=== PATIENT | female | born 1965 | race Caucasian/White ===

== ENCOUNTER 2016-06-15 08:59 | Day surgery (SDC) | payer OTHER ==
[~2016-06-15] VITALS: Ht 152.4 cm; Wt 98.0 kg
[~2016-06-15 08:59] MED LIST: ACETA-GESIC 321 EACH PO; ADVAIR 100/501 DISK IH; ADVAIR 250/501 DISK IH; ADVAIR 500/501 DISK IH; ALAVERT10 MG PO; AMBIEN10 M1 PO; AMBIEN10 MG PO; ANEXSIA 7.5-651 EACH PO; APRESOLINE50 MG PO; ASPIR 8181 M1 PO; ASPIR-TRIN325 M1 PO; ASPIRIN325 MG PO; ASPIRIN81 M1 PO; ATIVAN1 MG PO; ATIVAN2 MG PO; ATORVASTATIN CA10 MG PO; AZITHROMYCIN250 MG1 PO; Apresoline PO; Ativan PO; BENADRYL50 MG PO; CALAN SR,COVER180 MG PO; CALTRATE 600600 MG PO; CARAFATE100 MG/ML PO; CELEBREX100 MG PO; CELEBREX200 MG PO; CENTRUM SILVER1 EAC3 PO; CLARITIN10 M3 PO; CLARITIN10 MG PO; CLEOCIN300 MG PO; COMPAZINE10 MG PO; COZAAR100 MG PO; CYMBALTA60 MG PO; DAILY VITAMIN1 EAC8 PO; DAILY VITE1 EAC1 PO; DESYREL 150 MG150 MG PO; DESYREL100 MG PO; DICYCLOMINE HCL10 MG PO; DIGESTIVE AID PO; DOXYCYCLINE HY100 MG PO; ECOTRIN325 MG PO; ENDOCET 5-3251 EACH PO; FIORICET WI1 CAPSULE PO; FISH OIL SOFTG1 EACH PO; FLAGYL250 MG PO; FLEXERIL10 MG PO; FLEXERIL5 MG PO; FLONASE16 G1 BOTH NARES; FLONASE16 GM NS; GABAPENTIN100 MG PO; GABAPENTIN300 MG PO; GEODON80 MG PO; GLUCOPHAGE500 MG PO; HUMULIN R500 UNITS/ SC; HYDRALAZINE HCL50 MG PO; HYDROCODON-ACE1 EAC7 PO; IBUPROFEN600 MG PO; INSULIN PUMP SCCONT; LAMICTAL100 MG PO; LAMICTAL150 MG PO; LAMICTAL200 MG PO; LAMICTAL25 MG PO; LEVEMIR FL100 UNIT/1 SC; LEVEMIR100 UNIT/2 PO; LEXAPRO10 MG PO; LIPITOR10 MG PO; LITE COAT ASPI325 M1 PO; LOPRESSOR100 M1 PO; LORATADINE10 M2 PO; LORAZEPAM1 MG PO; LORAZEPAM2 MG PO; LORCET 5-325 M1 EACH PO; LORTAB 7.5-5001 EACH PO; LOSARTAN POTAS100 MG PO; MAGNESIUM100 MG PO; MECLIZINE HCL25 M2 PO; MEDROL DOSEPAK4 MG PO; MELOXICAM15 MG PO; METFORMIN HCL500 M1 PO; METFORMIN HCL500 MG PO; MIGRANAL1 ML BOTH NARES; MISOPROSTOL200 MCG PO; MOBIC15 MG PO; MOBIC7.5 MG PO; MOTRIN IB200 MG PO; MOTRIN600 MG PO; MOTRIN800 MG PO; MUPIROCIN22 GM TP; NAPROSYN500 MG PO; NEURONTIN300 MG PO; NEXIUM40 MG PO; NIASPAN500 MG PO; NORCO 5/3251 TABLET PO; NORVASC10 MG PO; NOVOLIN,HU100 UNITS/ SC; NOVOLOG PE100 UNITS/ SC; ONE-A-DAY ESSE1 EAC1 PO; PENLAC 8%6.6 ML TP; PERCOCET 5/31 TABLET PO; PRINIVIL20 MG PO; PROAIR HFA8.5 GM IH; PROMETHAZINE HC25 M1 PO; Proventil,Ventolin H IH; REGLAN10 MG PO; RENATABS TABLE1 EACH PO; RISPERDAL3 MG PO; RISPERIDONE3 MG PO; RITALIN10 MG PO; SANCTURA20 MG PO; SKELAXIN800 MG PO; ST. JOSEPH ASPI81 MG PO; TOVIAZ8 MG PO; TRAMADOL HCL50 MG PO; TRAZODONE HCL100 MG PO; TRAZODONE HCL150 MG PO; TRAZODONE HCL50 MG PO; ULTRAM50 MG PO; UNKNOWN MEDICATIONS; VERAPAMIL ER240 MG PO; VERAPAMIL HCL180 MG PO; VERAPAMIL HCL240 MG PO; VERAPAMIL HCL360 MG PO; VERELAN 180 MG180 MG PO; VIBRAMYCIN100 MG PO; VICODIN 5-3001 EACH PO; VICODIN,LORT1 TABLET PO; WOMEN S BONE H PO; XANAX1 MG PO; ZESTRIL,PRINIVI10 MG PO; ZITHROMAX250 MG PO; ZOFRAN ODT4 MG PO; ZOFRAN4 MG PO; ZOLPIDEM TARTRA10 MG PO; [UNRECOGNIZED DRUG - OTHER]
[2016-06-15 09:31] LABS: POINT-OF-CARE METER ID UU14174212
== END 2016-06-15 10:41 | disposition home or self-care (01) ==
LOC: PAIN 08:59 → SDC 09:15 → PAIN 09:15
PROVIDERS: Anesthesiology Pain Medicine
PROC: 3E0T3BZ Introduction of Anesthetic Agent into Peripheral Nerves and Plexi, Percutaneous Approach (ICD-10-PCS; principal; 2016-06-15)
DX: M47.892 Other spondylosis, cervical region (principal); F41.1 Generalized anxiety disorder; J45.909 Unspecified asthma, uncomplicated; E11.40 Type 2 diabetes mellitus with diabetic neuropathy, unspecified; M47.816 Spondylosis without myelopathy or radiculopathy, lumbar region; E78.5 Hyperlipidemia, unspecified; F31.81 Bipolar II disorder; M79.1 Myalgia; Z79.4 Long term (current) use of insulin; Z96.41 Presence of insulin pump (external) (internal); M54.40 Lumbago with sciatica, unspecified side; K76.0 Fatty (change of) liver, not elsewhere classified
CPT/HCPCS: 82948; J1030; J2250; J3010; S0020

== ENCOUNTER 2016-08-22 17:15 | Observation (INO) | payer OTHER ==
[~2016-08-22] VITALS: Ht 152.4 cm; Wt 101.9 kg
[2016-08-22 17:45] LABS: POINT-OF-CARE METER ID UU13113778
[2016-08-22 19:29] LABS: HEMATOCRIT 35.5 % (36.0-46.0); MCHC 31.8 G/DL (30.0-36.0); MCV 88.1 FL (83-99); MEAN PLAT.VOLUME 9.8 uM^3 (9.5-12.4); PLATELET COUNT 269 K/uL (156-360); RBC DIS.WIDTH-CV 12.8 % (11.8-14.6); RBC DIS.WIDTH-SD 41.5 % (39-53); RED BLOOD COUNT 4.03 M/uL (3.80-5.20); WHITE BLOOD COUNT 8.9 K/uL (4.1-10.2)
[2016-08-22 19:37] LABS: CHLORIDE 105 mEq/L (99-109); POTASSIUM 3.8 mEq/L (3.7-5.4); SODIUM 142 mEq/L (136-147)
[2016-08-22 19:39] LABS: GLUCOSE 77 mg/dL (70-99)
[2016-08-22 19:40] LABS: ANION GAP 8 MEQ/L (2-14)
[2016-08-22 19:44] LABS: GFR ESTIMATE (CALCULATED) > 59 mL/min/; UREA NITROGEN (BUN) 28 mg/dL (9-23)
[2016-08-22 19:48] LABS: TROP-I INTERPRETATION NEGATIVE; TROPONIN-I 0.03 ng/mL (0.0-0.30)
[2016-08-22 19:56] LABS: D-DIMER ELISA 0.62 mg/L FEU (< 0.57)
[2016-08-22 20:47] LABS: QUANTITATIVE HCG < 4.0 MIU/ML
[2016-08-22] MEDS ORDERED: ADVAIR 250/501 DISK IH (22:02)
[2016-08-22] MEDS ORDERED: ARTHROTEC 751 TABLET PO (22:05)
[2016-08-22] MEDS ORDERED: ABILIFY10 MG PO (22:07)
[2016-08-22] MEDS ORDERED: NYSTOP60 GM TP (22:08)
[2016-08-22] MEDS ORDERED: NYSTATIN15 GM TP (22:09)
[2016-08-22] MEDS ORDERED: PERCOCET 5/31 TABLET PO (22:11)
[2016-08-22] MEDS ORDERED: OTEZLA30 MG PO (22:14)
[2016-08-23 00:13] LABS: POINT-OF-CARE METER ID UU14100415
[2016-08-23 02:02] LABS: TROP-I INTERPRETATION NEGATIVE; TROPONIN-I 0.02 ng/mL (0.0-0.30)
[2016-08-23 02:22] VITALS: BP 126/57
[2016-08-23 02:37] LABS: HDL CHOLESTEROL 38 MG/DL (Desirable>=50); LDL CHOLESTEROL 24 mg/dL (Desirable<100); NON-HDL CHOLESTEROL 50 mg/dL (Desirable<160); TOTAL CHOLESTEROL 88 mg/dL (Desirable<200); TRIGLYCERIDES 128 MG/DL (Normal: <150)
[2016-08-23 03:37] LABS: POINT-OF-CARE METER ID UU13113700
[2016-08-23 05:00] LABS: METH RESISTANT S AUREUS PCR NEGATIVE (NEGATIVE)
[2016-08-23 05:07] LABS: PROBE CHECK PASS; SPECIMEN PROCESSING CONTROL PASS
[2016-08-23 08:42] LABS: POINT-OF-CARE METER ID UU13113831
[2016-08-23 08:53] VITALS: BP 121/73
[2016-08-23 09:21] LABS: TROP-I INTERPRETATION NEGATIVE; TROPONIN-I 0.01 ng/mL (0.0-0.30)
[2016-08-23 11:12] VITALS: BP 124/63
[2016-08-23 12:12] LABS: POINT-OF-CARE METER ID UU13113700
== END 2016-08-23 13:10 | disposition home or self-care (01) ==
LOC: EME 17:15 → EDOF 08-23 00:24 → 5WEST 08-23 01:50
PROVIDERS: Emergency Medicine; Family Medicine; Hospitalist; Physician Assistant Medical
DX: R07.89 Other chest pain (principal); D64.9 Anemia, unspecified; I10 Essential (primary) hypertension; F31.9 Bipolar disorder, unspecified; E78.5 Hyperlipidemia, unspecified; E11.9 Type 2 diabetes mellitus without complications; Z79.4 Long term (current) use of insulin; Z96.41 Presence of insulin pump (external) (internal); E66.01 Morbid (severe) obesity due to excess calories; Z68.41 Body mass index [BMI] 40.0-44.9, adult; F43.10 Post-traumatic stress disorder, unspecified; G43.909 Migraine, unspecified, not intractable, without status migrainosus; L40.9 Psoriasis, unspecified; G89.29 Other chronic pain
CPT/HCPCS: 71020; 78582; 80048; 80061; 82948; 84484; 84702; 85027; 85379; 87641; 93005; 94640; 94640 76; 99202; 99281; 99285; A9540; A9567; G0378; J1650; J3010

== ENCOUNTER 2016-08-31 09:45 | Day surgery (SDC) | payer OTHER ==
[~2016-08-31] VITALS: Ht 152.4 cm; Wt 98.2 kg
[~2016-08-31 09:45] MED LIST changes: +ABILIFY10 MG PO; +ARTHROTEC 751 TABLET PO; +NYSTATIN15 GM TP; +NYSTOP60 GM TP; +OTEZLA30 MG PO
[2016-08-31 10:23] LABS: POINT-OF-CARE METER ID UU14174212
== END 2016-08-31 12:33 | disposition home or self-care (01) ==
LOC: PAIN 09:45 → SDC 10:45 → PAIN 12:33
PROVIDERS: Anesthesiology Pain Medicine
DX: M47.812 Spondylosis without myelopathy or radiculopathy, cervical region (principal); F41.9 Anxiety disorder, unspecified; M47.816 Spondylosis without myelopathy or radiculopathy, lumbar region; M19.90 Unspecified osteoarthritis, unspecified site; E10.40 Type 1 diabetes mellitus with diabetic neuropathy, unspecified; Z96.41 Presence of insulin pump (external) (internal); I10 Essential (primary) hypertension; K58.9 Irritable bowel syndrome, unspecified; F32.9 Major depressive disorder, single episode, unspecified; J45.909 Unspecified asthma, uncomplicated; L40.50 Arthropathic psoriasis, unspecified; Z91.5 Personal history of self-harm; Z91.09 Other allergy status, other than to drugs and biological substances; Z91.030 Bee allergy status; Z88.0 Allergy status to penicillin; Z88.2 Allergy status to sulfonamides; Z88.1 Allergy status to other antibiotic agents; Z88.8 Allergy status to other drugs, medicaments and biological substances
CPT/HCPCS: 82948; J1030; J1885; J2250; J3010; S0020

== ENCOUNTER 2016-09-08 16:58 | Emergency (ER) | payer OTHER ==
[~2016-09-08] VITALS: Ht 152.4 cm; Wt 102.0 kg
[2016-09-08 18:08] LABS: BASOPHIL COUNT 0.1 K/uL (0-0.1); EOSINOPHIL (%) 2.6 % (0-5); EOSINOPHIL COUNT 0.3 K/uL (0-0.3); IMMATURE GRANULOCYTE (%) 0.4 % (0.0-0.7); INSTRUMENT ABS NEUTROPHIL CT 6.4 K/uL; LYMPHOCYTE COUNT 2.4 K/uL (1.0-2.8); MCH 28.4 PG (29.0-34.0); MCHC 32.7 G/DL (30.0-36.0); MCV 86.9 FL (83-99); MEAN PLAT.VOLUME 9.8 uM^3 (9.5-12.4); MONOCYTE (%) 7.6 % (3-12); MONOCYTE COUNT 0.8 K/uL (0-0.8); NEUTROPHIL (%) 64.7 % (45-76); NEUTROPHIL COUNT 6.4 K/uL (1.8-6.4); PLATELET COUNT 276 K/uL (156-360); RBC DIS.WIDTH-CV 12.8 % (11.8-14.6); RBC DIS.WIDTH-SD 40.2 % (39-53); RED BLOOD COUNT 4.26 M/uL (3.80-5.20)
[2016-09-08 18:20] LABS: CHLORIDE 104 mEq/L (99-109); POTASSIUM 3.9 mEq/L (3.7-5.4); SODIUM 139 mEq/L (136-147)
[2016-09-08 18:21] LABS: MAGNESIUM 1.9 mg/dL (1.3-2.7)
[2016-09-08 18:22] LABS: GLUCOSE 142 mg/dL (70-99)
[2016-09-08 18:23] LABS: ANION GAP 11 MEQ/L (2-14); PROTHROMBIN TIME 9.8 (9.2-11.2); PTT 24.3 (25-32)
[2016-09-08 18:26] LABS: GFR ESTIMATE (CALCULATED) > 59 mL/min/
[2016-09-08 18:27] LABS: UREA NITROGEN (BUN) 23 mg/dL (9-23)
[2016-09-08 18:28] LABS: TROP-I INTERPRETATION NEGATIVE; TROPONIN-I < 0.01 ng/mL (0.0-0.30)
[2016-09-08 20:42] LABS: TROP-I INTERPRETATION NEGATIVE; TROPONIN-I < 0.01 ng/mL (0.0-0.30)
[2016-09-08 21:08] VITALS: BP 161/62
== END 2016-09-08 21:16 | disposition home or self-care (01) ==
LOC: EME → EDBD 16:58 → EME 21:16
PROVIDERS: Emergency Medicine
DX: R07.89 Other chest pain (principal); I10 Essential (primary) hypertension; E78.5 Hyperlipidemia, unspecified; J45.909 Unspecified asthma, uncomplicated; E11.9 Type 2 diabetes mellitus without complications; F31.9 Bipolar disorder, unspecified; K21.9 Gastro-esophageal reflux disease without esophagitis; K58.9 Irritable bowel syndrome, unspecified; F43.10 Post-traumatic stress disorder, unspecified; G89.29 Other chronic pain; M54.9 Dorsalgia, unspecified; F41.9 Anxiety disorder, unspecified; Z96.41 Presence of insulin pump (external) (internal); Z79.4 Long term (current) use of insulin
CPT/HCPCS: 71010; 80048; 83735; 84484; 85025; 85610; 85730; 93005; 99281; 99285

== ENCOUNTER 2016-10-12 04:32 | Emergency (ER) | payer OTHER ==
[~2016-10-12] VITALS: Ht 152.4 cm; Wt 99.3 kg
[2016-10-12 04:38] VITALS: BP 141/63
== END 2016-10-12 07:01 | disposition home or self-care (01) ==
LOC: EME 04:32
DX: J02.8 Acute pharyngitis due to other specified organisms (principal)
CPT/HCPCS: 87651 90; 99281; 99284

== ENCOUNTER 2016-11-09 08:16 | Day surgery (SDC) | payer OTHER ==
[~2016-11-09] VITALS: Ht 152.4 cm; Wt 102.0 kg
[~2016-11-09 08:16] MED LIST changes: +HUMIRA40 MG/0.1 SC; +KETOCONAZOLE60 GM TP
[2016-11-09 11:08] LABS: POINT-OF-CARE METER ID UU13113696; POINT-OF-CARE USER ID HMLCJM07
[2016-11-09 13:06] LABS: POINT-OF-CARE METER ID UU13113819; POINT-OF-CARE USER ID ADMKMM76
== END 2016-11-09 17:25 | disposition home or self-care (01) ==
LOC: CATH 08:16
PROVIDERS: Internal Medicine Cardiovascular Disease
DX: R07.9 Chest pain, unspecified (principal); R06.02 Shortness of breath; I10 Essential (primary) hypertension; E78.5 Hyperlipidemia, unspecified; E11.9 Type 2 diabetes mellitus without complications; L40.50 Arthropathic psoriasis, unspecified; Z91.041 Radiographic dye allergy status
CPT/HCPCS: 82948; C1769; C1887; J1644; J2250; J2405; J3010

== ENCOUNTER 2017-01-23 08:48 | Day surgery (SDC) | payer OTHER ==
[~2017-01-23] VITALS: Ht 152.4 cm; Wt 99.8 kg
[2017-01-23] MEDS ORDERED: CALMOSEPTINE O3.5 GM TP (09:35)
[2017-01-23 10:33] LABS: POINT-OF-CARE METER ID UU13113819
[2017-01-23 14:51] LABS: POINT-OF-CARE METER ID UU14174216
== END 2017-01-23 11:15 | disposition home or self-care (01) ==
LOC: PAIN 08:48 → SDC 09:30 → PAIN 11:15
PROVIDERS: Anesthesiology Pain Medicine
DX: M47.22 Other spondylosis with radiculopathy, cervical region (principal); M54.2 Cervicalgia; Z88.2 Allergy status to sulfonamides; E11.40 Type 2 diabetes mellitus with diabetic neuropathy, unspecified; M47.816 Spondylosis without myelopathy or radiculopathy, lumbar region; M54.40 Lumbago with sciatica, unspecified side; I10 Essential (primary) hypertension; E66.01 Morbid (severe) obesity due to excess calories; Z68.41 Body mass index [BMI] 40.0-44.9, adult; J45.20 Mild intermittent asthma, uncomplicated; M17.11 Unilateral primary osteoarthritis, right knee; K21.9 Gastro-esophageal reflux disease without esophagitis; Z79.4 Long term (current) use of insulin; E78.5 Hyperlipidemia, unspecified; F41.9 Anxiety disorder, unspecified; Z88.0 Allergy status to penicillin; Z79.82 Long term (current) use of aspirin; G89.29 Other chronic pain
CPT/HCPCS: 82948; J1030; J2250; J3010; S0020

== ENCOUNTER 2017-01-27 22:52 | Emergency (ER) | payer OTHER ==
[~2017-01-27] VITALS: Ht 152.4 cm; Wt 98.0 kg
[~2017-01-27 22:52] MED LIST changes: +CALMOSEPTINE O3.5 GM TP
[2017-01-28 02:27] LABS: HEMATOCRIT 37.1 % (36.0-46.0); MCH 28.7 PG (29.0-34.0); MCHC 31.8 G/DL (30.0-36.0); MCV 90.3 FL (83-99); MEAN PLAT.VOLUME 10.2 uM^3 (9.5-12.4); PLATELET COUNT 261 K/uL (156-360); RBC DIS.WIDTH-CV 13.3 % (11.8-14.6); RED BLOOD COUNT 4.11 M/uL (3.80-5.20); WHITE BLOOD COUNT 10.7 K/uL (4.1-10.2)
[2017-01-28 02:39] LABS: CHLORIDE 105 mEq/L (99-109); POTASSIUM 3.8 mEq/L (3.7-5.4)
[2017-01-28 02:41] LABS: GLUCOSE 142 mg/dL (70-99)
[2017-01-28 02:42] LABS: ANION GAP 8 MEQ/L (2-14)
[2017-01-28 02:43] LABS: TOTAL BILIRUBIN 0.2 mg/dL (0.0-1.0)
[2017-01-28 02:45] LABS: ALKALINE PHOSPHATASE 104 IU/L (3-129); GFR ESTIMATE (CALCULATED) > 59 mL/min/
[2017-01-28 02:48] LABS: SODIUM 143 mEq/L (136-147); UREA NITROGEN (BUN) 21 mg/dL (9-23)
[2017-01-28 08:40] VITALS: BP 134/66
== END 2017-01-28 08:43 | disposition home or self-care (01) ==
LOC: EME 22:52
PROVIDERS: Physician Assistant
DX: L02.415 Cutaneous abscess of right lower limb (principal); L02.214 Cutaneous abscess of groin; Z16.30 Resistance to unspecified antimicrobial drugs; E11.9 Type 2 diabetes mellitus without complications; Z79.4 Long term (current) use of insulin; E78.5 Hyperlipidemia, unspecified; Z96.41 Presence of insulin pump (external) (internal); Z87.442 Personal history of urinary calculi; Z88.1 Allergy status to other antibiotic agents; Z88.2 Allergy status to sulfonamides; Z88.6 Allergy status to analgesic agent
CPT/HCPCS: 80053; 83605; 85027; 99281; 99284; J3370

== ENCOUNTER 2017-03-20 12:17 | Day surgery (SDC) | payer OTHER ==
[~2017-03-20] VITALS: Ht 152.4 cm; Wt 99.8 kg
[2017-03-20 13:16] LABS: POINT-OF-CARE METER ID UU14174212
== END 2017-03-20 15:02 | disposition home or self-care (01) ==
LOC: PAIN 12:17
PROVIDERS: Anesthesiology Pain Medicine
DX: M47.22 Other spondylosis with radiculopathy, cervical region (principal); M54.2 Cervicalgia; M47.816 Spondylosis without myelopathy or radiculopathy, lumbar region; I10 Essential (primary) hypertension; J45.909 Unspecified asthma, uncomplicated; K21.9 Gastro-esophageal reflux disease without esophagitis; E11.40 Type 2 diabetes mellitus with diabetic neuropathy, unspecified; E11.65 Type 2 diabetes mellitus with hyperglycemia; Z86.14 Personal history of Methicillin resistant Staphylococcus aureus infection; E78.5 Hyperlipidemia, unspecified; Z96.41 Presence of insulin pump (external) (internal); Z79.4 Long term (current) use of insulin; E66.01 Morbid (severe) obesity due to excess calories; Z68.41 Body mass index [BMI] 40.0-44.9, adult; L40.50 Arthropathic psoriasis, unspecified; R01.1 Cardiac murmur, unspecified; Z88.0 Allergy status to penicillin; Z88.2 Allergy status to sulfonamides; Z79.82 Long term (current) use of aspirin; Z79.891 Long term (current) use of opiate analgesic
CPT/HCPCS: 82948; J1030; J2250; J3010; S0020

== ENCOUNTER 2017-08-29 21:35 | Emergency (ER) | payer OTHER ==
[~2017-08-29] VITALS: Ht 152.4 cm; Wt 96.5 kg
[2017-08-29 22:16] LABS: HEMATOCRIT 36.8 % (36.0-46.0); HEMOGLOBIN 13.1 G/DL (11.9-15.5); MCH 30.8 PG (29.0-34.0); MCHC 35.6 G/DL (30.0-36.0); MCV 86.6 FL (83-99); PLATELET COUNT 179 K/uL (156-360); RBC DIS.WIDTH-CV 12.2 % (11.8-14.6); RBC DIS.WIDTH-SD 38.6 % (39-53); RED BLOOD COUNT 4.25 M/uL (3.80-5.20); WHITE BLOOD COUNT 9.6 K/uL (4.1-10.2)
[2017-08-29 22:29] LABS: ALBUMIN 4.1 g/dL (3.2-4.8); CHLORIDE 97 mEq/L (99-109); POTASSIUM 4.2 mEq/L (3.7-5.4); SODIUM 134 mEq/L (136-147)
[2017-08-29 22:31] LABS: TOTAL PROTEIN 7.1 g/dL (6.4-8.3)
[2017-08-29 22:33] LABS: TOTAL BILIRUBIN 0.4 mg/dL (0.0-1.0)
[2017-08-29 22:35] LABS: ALKALINE PHOSPHATASE 128 IU/L (3-129); CREATININE 0.8 mg/dL (0.6-1.3); GFR ESTIMATE (CALCULATED) > 59 mL/min/
[2017-08-29 22:36] LABS: UREA NITROGEN (BUN) 10 mg/dL (9-23)
[2017-08-29 22:37] LABS: AST (GOT) 31 IU/L (2-34)
[2017-08-29 22:38] LABS: ALT (GPT) 47 IU/L (3-49)
[2017-08-29 22:43] LABS: GLUCOSE 475 mg/dL (70-99)
[2017-08-30 01:00] LABS: APPEARANCE CLEAR ((CLEAR)); BILIRUBIN NEGATIVE; BLOOD NEGATIVE; COLOR YELLOW ((YELLOW)); GLUCOSE (STRIP) >=500; KETONES NEGATIVE; LEUKOCYTES NEGATIVE; NITRITE NEGATIVE; PROTEIN (STRIP) NEGATIVE; SPECIFIC GRAVITY 1.031 (1.000-1.030); UCUL ADDED? NO; UROBILINOGEN 0.2 MG/DL (0.2-1.0)
[2017-08-30 02:30] VITALS: BP 132/80
== END 2017-08-30 02:44 | disposition home or self-care (01) ==
LOC: EME 21:35
PROVIDERS: Physician Assistant
DX: E11.65 Type 2 diabetes mellitus with hyperglycemia (principal); Z91.19 Patient's noncompliance with other medical treatment and regimen; E86.0 Dehydration; E78.5 Hyperlipidemia, unspecified; K58.9 Irritable bowel syndrome, unspecified; F41.9 Anxiety disorder, unspecified; G89.29 Other chronic pain; M54.9 Dorsalgia, unspecified; Z79.4 Long term (current) use of insulin; Z96.41 Presence of insulin pump (external) (internal); Z87.442 Personal history of urinary calculi; Z90.49 Acquired absence of other specified parts of digestive tract; Z90.710 Acquired absence of both cervix and uterus; Z88.5 Allergy status to narcotic agent; Z88.2 Allergy status to sulfonamides; Z88.1 Allergy status to other antibiotic agents; Z88.0 Allergy status to penicillin; Z91.041 Radiographic dye allergy status
CPT/HCPCS: 80053; 81003; 82948; 85027; J7030

== ENCOUNTER 2017-08-30 15:24 | Emergency (ER) | payer OTHER ==
[~2017-08-30] VITALS: Ht 152.4 cm; Wt 96.8 kg
[2017-08-30 16:52] LABS: BASOPHIL (%) 1.2 % (0-1); BASOPHIL COUNT 0.1 K/uL (0-0.1); EOSINOPHIL (%) 2.1 % (0-5); EOSINOPHIL COUNT 0.2 K/uL (0-0.3); HEMATOCRIT 39.7 % (36.0-46.0); HEMOGLOBIN 13.8 G/DL (11.9-15.5); IMMATURE GRANULOCYTE (%) 0.2 % (0.0-0.7); LYMPHOCYTE (%) 29.4 % (15-42); MCH 30.1 PG (29.0-34.0); MCHC 34.8 G/DL (30.0-36.0); MCV 86.5 FL (83-99); MONOCYTE (%) 8.1 % (3-12); MONOCYTE COUNT 0.8 K/uL (0-0.8); PLATELET COUNT 195 K/uL (156-360); RBC DIS.WIDTH-CV 12.3 % (11.8-14.6); RBC DIS.WIDTH-SD 38.8 % (39-53); RED BLOOD COUNT 4.59 M/uL (3.80-5.20); WHITE BLOOD COUNT 10.1 K/uL (4.1-10.2)
[2017-08-30 16:53] LABS: CARBON DIOXIDE (BICARBONATE) 32.5 MEQ/L (20-31)
[2017-08-30 17:00] LABS: ALBUMIN 4.3 g/dL (3.2-4.8)
[2017-08-30 17:01] LABS: CHLORIDE 100 mEq/L (99-109); POTASSIUM 3.6 mEq/L (3.7-5.4); SODIUM 139 mEq/L (136-147)
[2017-08-30 17:03] LABS: TOTAL PROTEIN 7.6 g/dL (6.4-8.3)
[2017-08-30 17:04] LABS: GLUCOSE 104 mg/dL (70-99)
[2017-08-30 17:06] LABS: ALKALINE PHOSPHATASE 117 IU/L (3-129)
[2017-08-30 17:07] LABS: CREATININE 0.7 mg/dL (0.6-1.3); GFR ESTIMATE (CALCULATED) > 59 mL/min/; TOTAL BILIRUBIN 0.5 mg/dL (0.0-1.0)
[2017-08-30 17:08] LABS: UREA NITROGEN (BUN) 11 mg/dL (9-23)
[2017-08-30 17:10] LABS: ALT (GPT) 55 IU/L (3-49); LIPASE 25 U/L (1.0-51.0)
[2017-08-30 17:14] LABS: AST (GOT) 49 IU/L (2-34)
[2017-08-30 18:27] VITALS: BP 144/62
== END 2017-08-30 18:30 | disposition home or self-care (01) ==
LOC: EME 15:24
PROVIDERS: Emergency Medicine
DX: E11.65 Type 2 diabetes mellitus with hyperglycemia (principal); E78.5 Hyperlipidemia, unspecified; K58.9 Irritable bowel syndrome, unspecified; M54.9 Dorsalgia, unspecified; G89.29 Other chronic pain; F43.10 Post-traumatic stress disorder, unspecified; F41.9 Anxiety disorder, unspecified; Z79.51 Long term (current) use of inhaled steroids; Z79.891 Long term (current) use of opiate analgesic; Z79.82 Long term (current) use of aspirin; Z96.41 Presence of insulin pump (external) (internal); Z87.442 Personal history of urinary calculi; Z90.49 Acquired absence of other specified parts of digestive tract; Z90.711 Acquired absence of uterus with remaining cervical stump; Z91.048 Other nonmedicinal substance allergy status; Z88.1 Allergy status to other antibiotic agents; Z88.5 Allergy status to narcotic agent; Z88.2 Allergy status to sulfonamides; Z88.0 Allergy status to penicillin; Z91.041 Radiographic dye allergy status; Z91.010 Allergy to peanuts; Z88.8 Allergy status to other drugs, medicaments and biological substances
CPT/HCPCS: 80053; 81003; 82010; 82803; 82948; 83605; 83690; 85025; 99281; 99284; J7120

== ENCOUNTER 2017-09-08 23:10 | Emergency (ER) | payer OTHER ==
[~2017-09-08] VITALS: Ht 152.4 cm; Wt 98.6 kg
[~2017-09-08 23:10] MED LIST changes: +ENBREL50 MG/1 ML SC; -HUMIRA40 MG/0.1 SC; +OMEPRAZOLE40 M1 PO
[2017-09-08 23:39] LABS: HEMATOCRIT 38.9 % (36.0-46.0); HEMOGLOBIN 13.4 G/DL (11.9-15.5); MCH 30.1 PG (29.0-34.0); MCHC 34.4 G/DL (30.0-36.0); MCV 87.4 FL (83-99); PLATELET COUNT 212 K/uL (156-360); RBC DIS.WIDTH-CV 12.3 % (11.8-14.6); RBC DIS.WIDTH-SD 39.5 % (39-53); RED BLOOD COUNT 4.45 M/uL (3.80-5.20); WHITE BLOOD COUNT 10.2 K/uL (4.1-10.2)
[2017-09-08 23:48] LABS: CHLORIDE 103 mEq/L (99-109); POTASSIUM 3.8 mEq/L (3.7-5.4); SODIUM 139 mEq/L (136-147)
[2017-09-08 23:51] LABS: GLUCOSE 164 mg/dL (70-99); TOTAL PROTEIN 7.1 g/dL (6.4-8.3)
[2017-09-08 23:53] LABS: TOTAL BILIRUBIN 0.4 mg/dL (0.0-1.0)
[2017-09-08 23:54] LABS: ALKALINE PHOSPHATASE 119 IU/L (3-129); CREATININE 0.7 mg/dL (0.6-1.3); GFR ESTIMATE (CALCULATED) > 59 mL/min/
[2017-09-08 23:55] LABS: UREA NITROGEN (BUN) 11 mg/dL (9-23)
[2017-09-08 23:56] LABS: AST (GOT) 39 IU/L (2-34)
[2017-09-08 23:57] LABS: ALT (GPT) 50 IU/L (3-49)
[2017-09-09 00:05] LABS: QUANTITATIVE HCG < 4.0 MIU/ML
[2017-09-09 00:29] LABS: APPEARANCE SL.HAZY ((CLEAR)); BILIRUBIN NEGATIVE; BLOOD NEGATIVE; COLOR YELLOW ((YELLOW)); GLUCOSE (STRIP) NEGATIVE; KETONES NEGATIVE; LEUKOCYTES SMALL; NITRITE NEGATIVE; PROTEIN (STRIP) NEGATIVE; SPECIFIC GRAVITY 1.012 (1.000-1.030); UROBILINOGEN 0.2 MG/DL (0.2-1.0)
[2017-09-09 00:38] LABS: BACTERIA NONE SEEN /HPF; EPITHELIAL CELLS 1+ /HPF; MUCUS TRACE /LPF; RED BLOOD CELLS 0-5 /HPF (0-5); UCUL ADDED? YES; WHITE BLOOD CELLS 15-20 /HPF (0-5)
[2017-09-09 01:02] LABS: LIPASE 34 U/L (1.0-51.0)
[2017-09-09 02:52] LABS: TROP-I INTERPRETATION NEGATIVE; TROPONIN-I < 0.01 ng/mL (0.0-0.30)
[2017-09-09 03:59] LABS: TROP-I INTERPRETATION NEGATIVE; TROPONIN-I 0.01 ng/mL (0.0-0.30)
[2017-09-09] MEDS ORDERED: ZOFRAN4 MG PO (04:34)
[2017-09-09 05:04] VITALS: BP 143/78
== END 2017-09-09 05:04 | disposition home or self-care (01) ==
LOC: EME 23:10
PROVIDERS: Emergency Medicine
DX: K59.00 Constipation, unspecified (principal); R10.31 Right lower quadrant pain; E78.5 Hyperlipidemia, unspecified; Z87.442 Personal history of urinary calculi; G43.909 Migraine, unspecified, not intractable, without status migrainosus; F41.9 Anxiety disorder, unspecified; G89.29 Other chronic pain; M54.9 Dorsalgia, unspecified; Z79.891 Long term (current) use of opiate analgesic; E11.9 Type 2 diabetes mellitus without complications; Z96.41 Presence of insulin pump (external) (internal); Z79.4 Long term (current) use of insulin; Z79.82 Long term (current) use of aspirin; Z88.1 Allergy status to other antibiotic agents; Z88.5 Allergy status to narcotic agent; Z88.2 Allergy status to sulfonamides; Z91.041 Radiographic dye allergy status; F43.10 Post-traumatic stress disorder, unspecified; K58.9 Irritable bowel syndrome, unspecified; Z88.0 Allergy status to penicillin; Z90.49 Acquired absence of other specified parts of digestive tract
CPT/HCPCS: 74176; 80053; 81003; 83690; 84484; 84702; 85027; 87086; 93005; 99281; 99284; J2405; J2765; J3010; J7030

== ENCOUNTER 2017-09-13 07:36 | Day surgery (SDC) | payer OTHER ==
[~2017-09-13] VITALS: Ht 152.4 cm; Wt 98.4 kg
== END 2017-09-13 08:45 | disposition home or self-care (01) ==
LOC: PAIN 07:36 → SDC 08:00 → PAIN 08:45
PROVIDERS: Anesthesiology Pain Medicine
DX: M47.816 Spondylosis without myelopathy or radiculopathy, lumbar region (principal); M54.40 Lumbago with sciatica, unspecified side; M47.812 Spondylosis without myelopathy or radiculopathy, cervical region; M54.12 Radiculopathy, cervical region; I10 Essential (primary) hypertension; J45.20 Mild intermittent asthma, uncomplicated; R01.1 Cardiac murmur, unspecified; E11.42 Type 2 diabetes mellitus with diabetic polyneuropathy; Z79.4 Long term (current) use of insulin; Z96.41 Presence of insulin pump (external) (internal); K21.9 Gastro-esophageal reflux disease without esophagitis; Z79.891 Long term (current) use of opiate analgesic; Z88.0 Allergy status to penicillin; Z88.2 Allergy status to sulfonamides; Z91.041 Radiographic dye allergy status
CPT/HCPCS: 82948; J0330; J1030; J2250; S0020

== ENCOUNTER 2017-09-18 09:18 | Day surgery (SDC) | payer OTHER ==
[~2017-09-18] VITALS: Ht 152.4 cm; Wt 98.4 kg
== END 2017-09-18 12:50 | disposition home or self-care (01) ==
LOC: PAIN 09:18 → SDC 09:45 → PAIN 12:50
PROVIDERS: Anesthesiology Pain Medicine
DX: M47.816 Spondylosis without myelopathy or radiculopathy, lumbar region (principal); M19.90 Unspecified osteoarthritis, unspecified site; E55.9 Vitamin D deficiency, unspecified; J45.20 Mild intermittent asthma, uncomplicated; E11.9 Type 2 diabetes mellitus without complications; L40.9 Psoriasis, unspecified; Z79.899 Other long term (current) drug therapy; Z79.82 Long term (current) use of aspirin; Z88.0 Allergy status to penicillin; Z88.1 Allergy status to other antibiotic agents; Z88.2 Allergy status to sulfonamides; Z88.5 Allergy status to narcotic agent; Z88.8 Allergy status to other drugs, medicaments and biological substances; Z91.048 Other nonmedicinal substance allergy status; Z91.041 Radiographic dye allergy status; Z91.030 Bee allergy status
CPT/HCPCS: 82948; J1030; J2250; S0020

== ENCOUNTER 2017-09-27 19:41 | Emergency (ER) | payer OTHER ==
[~2017-09-27] VITALS: Ht 152.4 cm; Wt 94.6 kg
[2017-09-27 20:33] LABS: HEMATOCRIT 38.9 % (36.0-46.0); HEMOGLOBIN 13.3 G/DL (11.9-15.5); MCH 30.2 PG (29.0-34.0); MCHC 34.2 G/DL (30.0-36.0); MCV 88.2 FL (83-99); PLATELET COUNT 232 K/uL (156-360); RBC DIS.WIDTH-SD 41.8 % (39-53); RED BLOOD COUNT 4.41 M/uL (3.80-5.20); WHITE BLOOD COUNT 9.9 K/uL (4.1-10.2)
[2017-09-27 20:41] LABS: ALBUMIN 3.8 g/dL (3.2-4.8); CHLORIDE 103 mEq/L (99-109); POTASSIUM 3.8 mEq/L (3.7-5.4); SODIUM 143 mEq/L (136-147)
[2017-09-27 20:43] LABS: GLUCOSE 117 mg/dL (70-99); TOTAL PROTEIN 6.5 g/dL (6.4-8.3)
[2017-09-27 20:45] LABS: TOTAL BILIRUBIN 0.4 mg/dL (0.0-1.0)
[2017-09-27 20:47] LABS: ALKALINE PHOSPHATASE 103 IU/L (3-129); CREATININE 0.7 mg/dL (0.6-1.3); GFR ESTIMATE (CALCULATED) > 59 mL/min/
[2017-09-27 20:48] LABS: UREA NITROGEN (BUN) 19 mg/dL (9-23)
[2017-09-27 20:49] LABS: AST (GOT) 45 IU/L (2-34)
[2017-09-27 20:50] LABS: ALT (GPT) 55 IU/L (3-49)
[2017-09-27 22:01] LABS: QUANTITATIVE HCG < 4.0 MIU/ML
[2017-09-27 22:45] LABS: TROP-I INTERPRETATION NEGATIVE; TROPONIN-I 0.02 ng/mL (0.0-0.30)
[2017-09-27 23:37] VITALS: BP 145/72
[2017-09-27 23:54] LABS: APPEARANCE SL.HAZY ((CLEAR)); BILIRUBIN NEGATIVE; BLOOD NEGATIVE; COLOR YELLOW ((YELLOW)); GLUCOSE (STRIP) NEGATIVE; KETONES NEGATIVE; LEUKOCYTES NEGATIVE; NITRITE NEGATIVE; PROTEIN (STRIP) NEGATIVE; SPECIFIC GRAVITY 1.023 (1.000-1.030); UROBILINOGEN 0.2 MG/DL (0.2-1.0)
[2017-09-28 00:03] LABS: BACTERIA NONE SEEN /HPF; EPITHELIAL CELLS RARE /HPF; MUCUS TRACE /LPF; RED BLOOD CELLS 0-5 /HPF (0-5); UCUL ADDED? NO; WHITE BLOOD CELLS 0-5 /HPF (0-5)
== END 2017-09-27 23:37 | disposition home or self-care (01) ==
LOC: EME → EDBD 19:41 → EME 23:37
PROVIDERS: Emergency Medicine
DX: R10.31 Right lower quadrant pain (principal); R42 Dizziness and giddiness; E10.9 Type 1 diabetes mellitus without complications; Z79.4 Long term (current) use of insulin; E78.5 Hyperlipidemia, unspecified; K58.0 Irritable bowel syndrome with diarrhea; F43.10 Post-traumatic stress disorder, unspecified; Z88.5 Allergy status to narcotic agent; Z88.2 Allergy status to sulfonamides; Z88.1 Allergy status to other antibiotic agents; Z88.0 Allergy status to penicillin; Z87.442 Personal history of urinary calculi
CPT/HCPCS: 74176; 80053; 81003; 83605; 83690; 84484; 84702; 85027; 93005; 99281; 99285; J7030

== ENCOUNTER 2017-10-26 15:04 | Emergency (ER) | payer OTHER ==
[~2017-10-26] VITALS: Ht 152.4 cm; Wt 97.6 kg
[2017-10-26 15:54] LABS: HEMATOCRIT 36.8 % (36.0-46.0); HEMOGLOBIN 12.7 G/DL (11.9-15.5); MCH 30.8 PG (29.0-34.0); MCHC 34.5 G/DL (30.0-36.0); MCV 89.3 FL (83-99); NRBC (%) 0.4 /100 WBC (0-0); PLATELET COUNT 215 K/uL (156-360); RBC DIS.WIDTH-CV 12.7 % (11.8-14.6); RBC DIS.WIDTH-SD 41.2 % (39-53); RED BLOOD COUNT 4.12 M/uL (3.80-5.20); WHITE BLOOD COUNT 7.8 K/uL (4.1-10.2)
[2017-10-26 16:02] LABS: ALBUMIN 3.6 g/dL (3.2-4.8); CHLORIDE 105 mEq/L (99-109); SODIUM 142 mEq/L (136-147)
[2017-10-26 16:04] LABS: GLUCOSE 144 mg/dL (70-99); TOTAL PROTEIN 6.4 g/dL (6.4-8.3)
[2017-10-26 16:06] LABS: TOTAL BILIRUBIN 0.3 mg/dL (0.0-1.0)
[2017-10-26 16:08] LABS: ALKALINE PHOSPHATASE 86 IU/L (3-129); CREATININE 0.7 mg/dL (0.6-1.3); GFR ESTIMATE (CALCULATED) > 59 mL/min/
[2017-10-26 16:09] LABS: UREA NITROGEN (BUN) 9 mg/dL (9-23)
[2017-10-26 16:10] LABS: AST (GOT) 33 IU/L (2-34)
[2017-10-26 16:11] LABS: ALT (GPT) 31 IU/L (3-49)
[2017-10-26] MEDS ORDERED: CLINDAMYCIN HC300 MG PO (17:15)
[2017-10-26 17:40] VITALS: BP 121/57
== END 2017-10-26 17:45 | disposition home or self-care (01) ==
LOC: EME 15:04
PROVIDERS: Nurse Practitioner Family
DX: L02.01 Cutaneous abscess of face (principal); Z86.14 Personal history of Methicillin resistant Staphylococcus aureus infection; E11.9 Type 2 diabetes mellitus without complications; L40.9 Psoriasis, unspecified; Z79.4 Long term (current) use of insulin; E78.5 Hyperlipidemia, unspecified; F43.10 Post-traumatic stress disorder, unspecified; K58.9 Irritable bowel syndrome, unspecified; G89.29 Other chronic pain; Z88.5 Allergy status to narcotic agent; Z88.2 Allergy status to sulfonamides; Z88.1 Allergy status to other antibiotic agents; Z88.0 Allergy status to penicillin
CPT/HCPCS: 80053; 85027; 99281; 99284

== ENCOUNTER 2017-10-27 23:28 | Emergency (ER) | payer OTHER ==
[~2017-10-27] VITALS: Ht 152.4 cm; Wt 98.2 kg
[~2017-10-27 23:28] MED LIST changes: +CLINDAMYCIN HC300 MG PO
[2017-10-28] MEDS ORDERED: NORCO 5/3251 TABLET PO (04:09)
[2017-10-28 04:43] VITALS: BP 135/67
== END 2017-10-28 04:44 | disposition home or self-care (01) ==
LOC: EME 23:28
DX: L02.01 Cutaneous abscess of face (principal); L03.211 Cellulitis of face; E78.5 Hyperlipidemia, unspecified; M54.9 Dorsalgia, unspecified; G89.29 Other chronic pain; K58.9 Irritable bowel syndrome, unspecified; J30.2 Other seasonal allergic rhinitis; G43.909 Migraine, unspecified, not intractable, without status migrainosus; F41.9 Anxiety disorder, unspecified; F43.10 Post-traumatic stress disorder, unspecified; Z96.41 Presence of insulin pump (external) (internal); Z79.51 Long term (current) use of inhaled steroids; Z79.82 Long term (current) use of aspirin; Z87.442 Personal history of urinary calculi; Z90.711 Acquired absence of uterus with remaining cervical stump; Z90.49 Acquired absence of other specified parts of digestive tract; Z88.5 Allergy status to narcotic agent; Z88.2 Allergy status to sulfonamides; Z88.1 Allergy status to other antibiotic agents; Z91.09 Other allergy status, other than to drugs and biological substances; Z91.041 Radiographic dye allergy status; Z91.02 Food additives allergy status; Z91.010 Allergy to peanuts
CPT/HCPCS: 99281; 99284; J3370

== ENCOUNTER → 2017-10-31 | Outpatient (CLI) | payer OTHER | END | disposition home or self-care (01) | LOC: AMB 13:40 | DX: L03.211 Cellulitis of face (principal) | CPT/HCPCS: 99212 ==

== ENCOUNTER 2017-12-13 12:14 | Emergency (ER) | payer OTHER ==
[~2017-12-13] VITALS: Ht 160 cm; Wt 89.4 kg
[2017-12-13 13:06] LABS: HEMATOCRIT 41.8 % (36.0-46.0); HEMOGLOBIN 15.1 G/DL (11.9-15.5); MCH 30.5 PG (29.0-34.0); MCHC 36.1 G/DL (30.0-36.0); MCV 84.4 FL (83-99); PLATELET COUNT 215 K/uL (156-360); RBC DIS.WIDTH-CV 12.2 % (11.8-14.6); RBC DIS.WIDTH-SD 36.4 % (39-53); RED BLOOD COUNT 4.95 M/uL (3.80-5.20); WHITE BLOOD COUNT 7.3 K/uL (4.1-10.2)
[2017-12-13 13:12] LABS: CARBON DIOXIDE (BICARBONATE) 31.1 MEQ/L (20-31)
[2017-12-13 13:17] LABS: CHLORIDE 97 mEq/L (99-109); POTASSIUM 4.6 mEq/L (3.7-5.4); SODIUM 134 mEq/L (136-147)
[2017-12-13 13:21] LABS: GLUCOSE 573 mg/dL (70-99)
[2017-12-13 13:22] LABS: GFR ESTIMATE (CALCULATED) > 59 mL/min/
[2017-12-13 13:23] LABS: UREA NITROGEN (BUN) 10 mg/dL (9-23)
[2017-12-13 13:46] LABS: APPEARANCE SL.HAZY ((CLEAR)); BILIRUBIN NEGATIVE; BLOOD NEGATIVE; COLOR YELLOW ((YELLOW)); GLUCOSE (STRIP) >=500; KETONES 5; LEUKOCYTES SMALL; NITRITE NEGATIVE; PROTEIN (STRIP) NEGATIVE; SPECIFIC GRAVITY 1.037 (1.000-1.030); UROBILINOGEN 0.2 MG/DL (0.2-1.0)
[2017-12-13 13:51] LABS: BACTERIA RARE /HPF; EPITHELIAL CELLS 1+ /HPF; MUCUS TRACE /LPF; WHITE BLOOD CELLS 0-5 /HPF (0-5)
[2017-12-13 18:24] VITALS: BP 162/75
== END 2017-12-13 18:25 | disposition home or self-care (01) ==
LOC: EME 12:14
PROVIDERS: Emergency Medicine; Nurse Practitioner Family
DX: E11.65 Type 2 diabetes mellitus with hyperglycemia (principal); E78.5 Hyperlipidemia, unspecified; K58.9 Irritable bowel syndrome, unspecified; M54.9 Dorsalgia, unspecified; G89.29 Other chronic pain; F41.9 Anxiety disorder, unspecified; Z79.4 Long term (current) use of insulin; Z96.41 Presence of insulin pump (external) (internal); Z87.442 Personal history of urinary calculi; Z90.49 Acquired absence of other specified parts of digestive tract; Z90.711 Acquired absence of uterus with remaining cervical stump; Z88.1 Allergy status to other antibiotic agents; Z88.2 Allergy status to sulfonamides; Z88.0 Allergy status to penicillin; Z88.5 Allergy status to narcotic agent; Z91.041 Radiographic dye allergy status; Z88.8 Allergy status to other drugs, medicaments and biological substances
CPT/HCPCS: 80048; 81003; 82010; 82803; 82948; 85027; 99281; 99285; J7030